=== PATIENT | female | born 1940 | race Caucasian/White ===

== ENCOUNTER 2017-01-07 18:05 | Inpatient (IN) | payer BC ==
--- NOTE | ~2017-01-07 | DS ---
Discharge Summary [facility] [address] [place]. [address] NAME: ZACK MALIK : 40 STATUS : ADM IN [facility]#: [id number] AGE: 76 ADM/REG DATE : 01/07/17 MR#: [id number] REPORT SERV DATE: 01/09/17 DICTATED BY: GABRIELA FUENTES DATE: 01/09/17 REPORT STATUS : Draft TRANSCRIBED BY: MODL DATE: 01/09/17 ADMISSION DATE: 01/07/2017 DISCHARGE DATE: 01/09/2017 DIAGNOSES ON ADMISSION: 1. Acute diverticulitis, recurrent in nature. 2. Leukocytosis. 3. Mild renal insufficiency. 4. Mild urinary tract infection. DIAGNOSES ON DISCHARGE: 1. Acute diverticulitis, improved. 2. Leukocytosis, improved. 3. Mild urinary tract infection, treated. 4. Abnormal CT scan and thickened urinary bladder on the CT, needs to have outpatient cystoscopy per Urology. 5. Mild acute kidney injury secondary to dehydration, resolved. 6. Hypertension, controlled. CONSULTANTS ON THE CASE: Broadcast Operations Engineer, Dr. Schwartz and also urologist, Dr. Hess. HISTORY OF PRESENT ILLNESS: Briefly, this is a 76-year-old female who was admitted by my colleague, Dr. Phillips on 01/07/2017 with lower abdominal pain consistent with acute recurrent diverticulitis as well as had mild urinary infection with dysuria. The patient reported that she had multiple episodes of diverticulitis and urinary tract infections. She was wondering why she has this repeated episode. She had elevated white count on admission. The white count on admission was 32,000 and she had mild dehydration with mild prerenal azotemia. The patient was started on IV fluids as well as on IV antibiotics, Levaquin, and Flagyl. For the details, see complete history of present illness dictated by Dr. Phillips on 01/07/2017. HOSPITAL COURSE: Briefly, the patient improved, was seen by me next day. Antibiotics were continued as well as she was seen by maintenance electrician, Dr. Schwartz, who evaluated the patient CT scan, which was done on admission. The CT scan of the abdomen and pelvis without contrast done on 01/07/2017 revealed colonic diverticulosis with mild haziness in the fat adjacent to the proximal sigmoid colon, which may represent early colitis, diverticulitis. No evidence for abscess. No evidence for perforation. Also thickened appearance of the anterior dome of the bladder, which may be due to under distention or cystitis. Suggest correlation with urinalysis as this appears somewhat focal. Followup cystoscopy may be helpful to entirely exclude an underlying neoplastic process. Duodenal diverticulum, 15 mm right ovarian cyst. So, basically after evaluation of the CT scan Dr. Schwartz recommended to continue antibiotics orally and he recommended the patient to be discharged as well as Dr. Hess, urologist was consulted for focally thickened urinary bladder. There was a concern about possible cystitis or other problems, so the patient needs to have outpatient cystoscopy. Her urinary Discharge Summary [place] [id number] [facility] [place]. [address] NAME: ZACK MALIK : 40 STATUS : ADM IN [facility]#: [id number] AGE: 76 ADM/REG DATE : 01/07/17 MR#: [id number] REPORT SERV DATE: 01/09/17 DICTATED BY: GABRIELA FUENTES DATE: 01/09/17 REPORT STATUS : Draft TRANSCRIBED BY: APOLINAR DATE: 01/09/17 tract infection was mild, but she was having some dysuria, Pyridium was given to the patient. Urinary culture was requested as well. The patient improved significantly and her white count improved, was 14,000 today. She was afebrile and doing much better. The patient was offered to stay one more day, but she refused to stay her and her daughter they both wanted to go home today. So, we gave her next dose of IV antibiotics today since she is afebrile and her pain has resolved. We will discharge her today per recommendation of Gastroenterology and Neurology as well as the patient to follow up with the primary care physician, Dr. Swanson in a week and he needs to follow up with Dr. Schwarzt in three to four weeks and with Dr. Hess also in three to four weeks. Blood pressure improved, was controlled 148/71 and her creatinine also normalized, creatinine was 0.81 today. She was afebrile, doing well. DISCHARGE MEDICATIONS: Continue home amlodipine 2.5 a day, vitamin C 500 daily, aspirin 81 mg daily, calcium with vitamin D 600 p.o. at bedtime, Lexapro 20 mg a day, levothyroxine 88 mcg daily, multivitamins daily, Toprol-XL 100 mg a day, Protonix 40 mg a day, MiraLAX one packet p.o. daily, Accupril 40 mg a day, Crestor 40 mg a day, Flonase nasal spray one spray daily p.r.n., the patient was given prescription of Levaquin 750 mg daily for 10 more days, Flagyl 500 mg p.o. t.i.d. for 10 more days, Pyridium 100 mg p.o. b.i.d. for dysuria for three more days. I also discussed with the patient's daughter that they need to follow up with Gastroenterology and Urology for cystoscopy. I spent 45 minutes on discharge. The patient to follow up with Dr. Swanson in one week. The patient was discharged in stable condition. MG/MODL Gabriela Fuentes M.D. / [id number] CC: Gregor Desir Alex G Kymber Habenicht, M.D. Munford Yates III, M.D.
--- NOTE | ~2017-01-07 | CN ---
Consultation Report [facility] [address] [place]. [address] NAME: ZACK MALIK : 40 STATUS : ADM IN PAT#: [id number] AGE: 76 ADM/REG DATE : 01/07/17 MR#: [id number] REPORT SERV DATE: 01/09/17 DICTATED BY: BRIAN SCHWARTZ III DATE: 01/08/17 REPORT STATUS : Draft TRANSCRIBED BY: APOLINAR DATE: 01/08/17 CONSULTATION DATE OF CONSULTATION: HISTORY OF PRESENT ILLNESS: The patient is a 76-year-old, white female with a history of hypertension, hypothyroidism, and recurrent diverticulitis, who presents for management of her recurrent diverticulitis. The patient states that she has had many bouts over the years and her primary doctor gives her medication. However, this time, the pain was worse and she was getting more nauseated. In addition, she felt a lot of burning and a little bit of blood in her urine. [facility] in [place] and she had a white blood cell count of over 30,000. She was sent downtown. She had a CT scan that showed some thickening of the dome of her bladder as well as diverticulitis. However, no complications. PAST MEDICAL HISTORY: Breast cancer, hypothyroidism, hyperlipidemia, hypertension, recurrent diverticulitis. Her last colonoscopy with Dr. Mata was six to seven years ago. PAST SURGICAL HISTORY: Double mastectomy with implants, carpal tunnel, cataracts, thyroid removal, cholecystectomy. MEDICATIONS: Norvasc, aspirin, Ceftin that was started on the , Lexapro, Synthroid, multivitamin, Toprol, MiraLAX, Protonix, Accupril, Crestor. ALLERGIES: SULFA. PHYSICAL EXAMINATION: GENERAL: Well-developed, well-nourished, slightly forgetful white female. VITAL SIGNS: Stable. She is afebrile. HEENT: Atraumatic, normocephalic. Sclerae anicteric. Oropharynx is clean. CHEST: Clear to auscultation. CV: S1, S2. ABDOMEN: Soft, nontender, nondistended. Good bowel sounds. EXTREMITIES: No edema. LABORATORY DATA: Labs noted urinary tract infection. Creatinine 1.13. White count 22,800, hemoglobin 10.7. ASSESSMENT AND PLAN: As noted, the patient with recurrent diverticulitis. Very mild, although her white count was elevated. I suspect that this was in addition to either cystitis or urinary tract infection. The CT scan documents no complication. As such, we will do the followin. Follow up with Dr. Mata in six to eight weeks for colonoscopy. 2. Antibiotics. 3. High-fiber diet. Consultation Report [place] [address] [place]. [address] NAME: ZACK MALIK : 40 STATUS : ADM IN PAT#: [id number] AGE: 76 ADM/REG DATE : 01/07/17 MR#: [id number] REPORT SERV DATE: 01/09/17 DICTATED BY: BRIAN SCHWARTZ III DATE: 01/08/17 REPORT STATUS : Draft TRANSCRIBED BY: APOLINAR DATE: 01/08/17 4. We will need to see a urologist to follow up on this abnormality in her bladder. We will sign off. If you have any questions, please contact me. VALENTINA/APOLINAR Brian Schwartz III, M.D. / [id number] CC: Gregor Desir MD William Buchner, M.D.
--- NOTE | ~2017-01-07 | HP ---
History And Physical [place] [id number] [place]. [address] NAME: ZACK MALIK : 40 STATUS : ADM IN [facility]#: [id number] AGE: 76 ADM/REG DATE : 01/07/17 MR#: [id number] REPORT SERV DATE: 01/07/17 DICTATED BY: MAMTA BERRY DATE: 01/07/17 REPORT STATUS : Draft TRANSCRIBED BY: MODAbby DATE: 01/07/17 DATE OF ADMISSION: 01/07/2017 CHIEF COMPLAINT: Abdominal pain. HISTORY OF PRESENT ILLNESS: The patient is a 76-year-old female. She has a past medical history significant for hypertension, hyperlipidemia, and hypothyroidism. She also has a history of recurrent diverticulitis and urinary tract infection. She states she has had diverticulitis over many years and has many bouts of diverticulitis. Usually her PCP, Dr. Swanson in [place] calls her in some Cipro. She states this episode is worse than most. It has been going on for quite a few days but has gotten worse over the past several days. She has had emesis x1. She has had pain that is a little more intense than what she is accustomed to which is right-sided at this point. Subjective fever. She went to the [id number] in [place] and was referred to the emergency department when her white count was noted to be significantly elevated. She was over 30,000 here. She was also noted to have UTI. She states her bowels have been normal and states these bouts of diverticulitis are usually caused by dietary indiscretion. PAST MEDICAL HISTORY: As covered above. PAST SURGICAL HISTORY: Thyroid removal, cholecystectomy, and double mastectomy with subsequent implant implantation and removal after silicon leakage, ankle surgery, ear surgery of a ruptured eardrum, knee scope, carpal tunnel release x2, and cataract surgery. CURRENT MEDICATIONS: Medication list is pending. ALLERGIES: SULFA. FAMILY HISTORY: Mother had CVA. Father had cardiovascular disease. SOCIAL HISTORY: Nondrinker, nonsmoker. REVIEW OF SYSTEMS: HEENT: No complaints. CARDIOVASCULAR: No chest pain or palpitations. PULMONARY: No cough or shortness of breath. GI: As covered in HPI. : She is having some dysuria. NEUROMUSCULOSKELETAL: Positive for the abdominal pain. Otherwise 10-point review of systems is negative. PHYSICAL EXAMINATION: VITAL SIGNS: Blood pressure 114/67, pulse 61, respirations 18, temperature 97.6, and O2 sat 99%. GENERAL: She is awake, alert, oriented, in no acute distress. HEENT: Normocephalic, atraumatic. Sclerae nonicteric. NECK: Supple. History And Physical [address] [place]. [address] NAME: ZACK MALIK : 40 STATUS : ADM IN PAT#: [id number] AGE: 76 ADM/REG DATE : 01/07/17 MR#: [id number] REPORT SERV DATE: 01/07/17 DICTATED BY: MAMTA BERRY DATE: 01/07/17 REPORT STATUS : Draft TRANSCRIBED BY: APOLINAR DATE: 01/07/17 HEART: Regular rate and rhythm without murmurs, gallops, or rubs. LUNGS: Clear to auscultation without rhonchi, rales, or wheezes. ABDOMEN: She does have bowel sounds. She has some mild tenderness in the right mid quadrant to palpation. No rebound. No distention. EXTREMITIES: No clubbing or cyanosis today. NEUROLOGICAL: Exam is grossly intact. LABORATORY DATA: Sodium 136, potassium 4.1, chloride 101, CO2 of 26, BUN and creatinine are 20 and 1.26. Glucose is 79. LFTs within normal limits. Lipase 84. White count is 32,000, H and H are 11.7 and 35.5, platelets are 151, 68 segs, 8 bands, and UA was leukocyte nitrite positive, [address] showed proximal sigmoid colon diverticulitis. It was uncomplicated with no perforated abscess. There was some thickening in the dome of her bladder. Followup recommended. ASSESSMENT: Diverticulitis with leukocytosis and mild renal insufficiency. PLAN: The patient has been admitted. IV antibiotics, IV fluids, serial labs. Will need outpatient evaluation of the abnormality on her CT on the bladder. SWETAF/APOLINAR Mamta Berry M.D. / [id number] CC: SVETLANA SWANSON
--- NOTE | ~2017-01-07 | CN ---
Consultation Report [facility] [address] [place]. [address] NAME: ZACK MALIK : 40 STATUS : ADM IN PAT#: [id number] AGE: 76 ADM/REG DATE : 01/07/17 MR#: [id number] REPORT SERV DATE: 01/08/17 DICTATED BY: YNES HESS DATE: 01/08/17 REPORT STATUS : Draft TRANSCRIBED BY: APOLINAR DATE: 01/08/17 UROLOGY CONSULT DATE OF CONSULTATION: 01/08/2017 This consult is from Dr. Stephen regarding abnormal finding on CT scan and recurrent urinary tract infections. CHIEF COMPLAINT: "I have an infection again." HISTORY: This is a 76-year-old woman who presented to the emergency room with an elevated white blood cell count of 32.8 and findings consistent with diverticulitis. She does have a history of recurrent diverticulitis. She was also suffering from symptoms of urinary tract infection and was found to have infected urine as well. She has a history of lifelong recurrent urinary tract infections per the patient. Usually, she calls her primary care physician and simply receives antibiotics over the phone. She does not recall having any urine cultures sent. She was taking Ceftin prior to admission. Her current symptoms with infection are urgency with leakage, frequency, and dysuria. She states she had a bladder tack years ago at [place]. CT scan noncontrast done for her diverticulitis symptoms showed an under-distended bladder, but they did comment on some thickening of the anterior wall. They state this thickening may be due to under-distention or cystitis, but recommended a cystoscopy to fully evaluate. Since her urine is infected, we cannot scope her. Her urinalysis did not show any red blood cells, which is promising. Currently, she is afebrile and feeling better today. PAST MEDICAL HISTORY: Significant for diverticulosis with recurrent episodes of diverticulitis, hypertension, hypercholesterolemia, hypothyroidism, history of recurrent urinary tract infections, and gastroesophageal reflux disease. PAST SURGICAL HISTORY: Thyroid surgery, cholecystectomy, silicone breast implants, double mastectomy with implant removal due to silicone leakage and then placement of implants, ankle surgery, ear surgery, knee scope, carpal tunnel release x2, and cataract surgery. MEDICATIONS: On admission, Norvasc, vitamin C, 81 mg aspirin, calcium with D, Ceftin, Lexapro, Flonase, Synthroid, Toprol-XL, Theragran-M vitamin, Protonix, MiraLAX, Accupril, and Crestor. ALLERGIES: SULFA. SOCIAL HISTORY: She is not currently . She denies any tobacco or alcohol use. REVIEW OF SYSTEMS: Positive for dysuria and abdominal pain. PHYSICAL EXAMINATION: Consultation Report [address] [place]. [address] NAME: ZACK MALIK : 40 STATUS : ADM IN [facility]#: [id number] AGE: 76 ADM/REG DATE : 01/07/17 MR#: [id number] REPORT SERV DATE: 01/08/17 DICTATED BY: YNES HESS DATE: 01/08/17 REPORT STATUS : Draft TRANSCRIBED BY: APOLINAR DATE: 01/08/17 VITAL SIGNS: She is afebrile. Blood pressure 179/70, pulse is 64. She has had 1320 mL in and is voiding. GENERAL: She is in no acute distress. NEUROLOGIC: Alert and oriented x3. PSYCHIATRIC: Appropriate. HEENT: She is significantly hard of hearing. Eyes; sclerae anicteric. NECK: Supple. LUNGS: Equal inspiratory effort bilaterally. CARDIOVASCULAR: She shows no edema today. ABDOMEN: Soft. She has some mild tenderness in her lower abdomen. LABORATORY STUDIES: Her white blood cell count is decreased to 22.8 today from 32.8 on admission. Hemoglobin of 10.7, hematocrit of 32.2, platelets of 174. She has 1 band today. Electrolytes are within normal limits. Creatinine is down to 1.13 today and glucose is 93. CT scan as stated above regarding urologic findings. Kidneys revealed no kidney stones or hydroureteronephrosis. She does have a 15 mm right ovarian cyst. A duodenal diverticulum and colonic diverticulosis with mild haziness of the fat adjacent to the proximal sigmoid. IMPRESSION: 1. Recurrent urinary tract infections. 2. Current urinary tract infection. 3. Abnormal bladder finding on CT scan. PLAN: 1. Hopefully, the Levaquin she is on for her diverticulitis will cover the urinary tract infection as well. We will check her culture results next . We will choose a urinary prophylaxis based on her culture result. We will see her back in the office for an office cystoscopy after urinary tract has healed from this current infection in four to six weeks. I have explained all this to the patient and she is in agreement with the plan. 2. I have ordered Pyridium for her current bladder symptoms. 3. It is okay to discharge her from the Urology standpoint. 4. Orders are written. CARLY/APOLINAR Ynes Hess M.D. / [id number] CC: Annia Stephen M.D. Consultation Report [address] [address] NAME: ZACK MALIK : 40 STATUS : ADM IN [facility]#: [id number] AGE: 76 ADM/REG DATE : 01/07/17 MR#: [id number] REPORT SERV DATE: 01/08/17 DICTATED BY: YNES HESS DATE: 01/08/17 REPORT STATUS : Draft TRANSCRIBED BY: APOLINAR DATE: 01/08/17 SVETLANA RAYMUNDO
[2017-01-07 17:31] LABS: BASOPHILS 0.1 %; BASOPHILS ABSOLUTE 0.03 10/3/uL (0.0-0.16); EOSINOPHILS 0.1 %; EOSINOPHILS ABSOLUTE 0.02 10/3/uL (0.0-0.53); HEMATOCRIT 35.5 % (36.0-48.0); HEMOGLOBIN 11.7 g/dL (12.0-16.0); IMMATURE GRANULOCYTES 0.8 %; IMMATURE GRANULOCYTES ABSOLUTE 0.27 10/3/uL (0.0-0.11); LYMPHOCYTES 12.3 %; LYMPHOCYTES ABSOLUTE 4.03 10/3/uL (0.67-4.30); MEAN CORPUSCULAR HEMOGLOB 28.7 pg (26.0-34.0); MEAN PLATELET VOLUME 10.6 fL (9.2-13.0); MONOCYTES 27.4 %; MONOCYTES ABSOLUTE 8.96 10/3/uL (0.21-1.20); NEUTROPHILS 59.3 %; NEUTROPHILS ABSOLUTE 19.44 10/3/uL (2.02-8.40); PLATELET COUNT 188 10/3/uL (150-400); RED CELL COUNT 4.08 10/6/uL (4.0-5.6)
[2017-01-07 17:36] LABS: ER CBC TAT 0 Hrs 14 Mins; WHITE BLOOD CELLS 32.8 10/3/uL (4.5-10.5)
[2017-01-07 17:37] LABS: MANUAL DIFF NO %
[2017-01-07 17:54] LABS: ALBUMIN 3.5 G/DL (3.5-5.0); ALKALINE PHOSPHATASE 62 U/L (45-117); BUN (BLOOD UREA NITROGEN) 20 MG/DL (6-23); CALCIUM, SERUM 8.8 MG/DL (8.5-10.4); CHLORIDE, SERUM 101 MMOL/L (96-112); CO2 (CARBON DIOXIDE) 26 MMOL/L (24-34); CREATININE 1.26 MG/DL (0.55-1.02); DIRECT BILIRUBIN 0.2 MG/DL (0.0-0.4); GFR AFRICAN AMERICAN 48 ML/MIN (>=60); GFR NON AFRICAN AMERICAN 41 ML/MIN (>=60); GLOBULIN 3.5 G/DL (2.5-4.1); GLUCOSE, SERUM 79 MG/DL (60-99); INDIRECT BILIRUBIN(NOT ORDER) 0.7 MG/DL (0.1-0.9); POTASSIUM, SERUM 4.1 MMOL/L (3.5-5.3); SGOT(AST) 16 U/L (5-40); SGPT(ALT) 18 U/L (5-65); SODIUM, SERUM 136 MMOL/L (135-148); TOTAL BILIRUBIN 0.9 MG/DL (0-1.2)
[2017-01-07 17:55] LABS: BAND NEUTROPHILS 8 %; ER DIFF TAT 0 Hrs 33 Mins; LYMPHOCYTES 14 %; LYMPHOCYTES ABSOLUTE (CALC) 4.59 10/3/uL (0.67-4.30); MONOCYTES 20 %; MONOCYTES ABSOLUTE (CALC) 6.56 10/3/uL (0.21-1.20); NEUTROPHILS ABSOLUTE (CALC) 21.65 10/3/uL (2.02-8.40); PLATELET ESTIMATE ADQ (ADEQUATE); RBC MORPHOLOGY NORM (NORMAL); SEGMENTED NEUTROPHIL (0) 58 %; TOTAL NUCLEATED CELLS 100
[2017-01-07 18:20] LABS: ASCORBIC ACID (UR NOT ORDER) 40 (NEG); BILIRUBIN, URINE NEGATIVE (NEG); ER URINALYSIS TAT 0 Hrs 10 Mins; KETONE, URINE NEGATIVE (NEG); LEUKOCYTE ESTERASE(NOT OR TRACE (NEG); NITRITE (URINE) POS (NEG); WBC (NOT ORDERED) (RFLEX) 19 (0-5)
[2017-01-07] MEDS ORDERED: NORV25 PO (19:03)
[2017-01-07] MEDS ORDERED: PROTONIX PO (19:03)
[2017-01-07] MEDS ORDERED: SYN88 PO (19:03)
[2017-01-07] MEDS ORDERED: ACCUPRIL40 MG PO (19:03)
[2017-01-07] MEDS ORDERED: VITC500 PO (19:04)
[2017-01-07] MEDS ORDERED: LEXAPRO20 PO (19:04)
[2017-01-07] MEDS ORDERED: TOPXL100 PO (19:04)
[2017-01-07] MEDS ORDERED: THERGRANM PO (19:04)
[2017-01-07] MEDS ORDERED: CRESTOR40 MG PO (19:04)
[2017-01-07] MEDS ORDERED: CALTRA600D PO (19:05)
[2017-01-07] MEDS ORDERED: FLONASE NAS (19:05)
[2017-01-07] MEDS ORDERED: CEFT5 PO (19:05)
[2017-01-07] MEDS ORDERED: MIRALAX POWDER1 PKT PO (19:05)
[2017-01-07] MEDS ORDERED: HALF81 PO (19:05)
[2017-01-08 04:44] LABS: HEMATOCRIT 32.2 % (36.0-48.0); HEMOGLOBIN 10.7 g/dL (12.0-16.0); MEAN CORPUS HGB CONC 33.2 g/dL (32.0-36.0); MEAN CORPUSCULAR HEMOGLOB 28.8 pg (26.0-34.0); MEAN CORPUSCULAR VOLUME 86.6 fL (80-100); MEAN PLATELET VOLUME 10.5 fL (9.2-13.0); PLATELET COUNT 174 10/3/uL (150-400); RBC DISTRIBUTION WIDTH 14.8 % (12.0-16.0); RED CELL COUNT 3.72 10/6/uL (4.0-5.6); WHITE BLOOD CELLS 22.8 10/3/uL (4.5-10.5)
[2017-01-08 04:45] LABS: MANUAL DIFF YES %
[2017-01-08 04:48] LABS: BUN (BLOOD UREA NITROGEN) 21 MG/DL (6-23); CALCIUM, SERUM 8.3 MG/DL (8.5-10.4); CHLORIDE, SERUM 107 MMOL/L (96-112); CREATININE 1.13 MG/DL (0.55-1.02); GFR AFRICAN AMERICAN 55 ML/MIN (>=60); GFR NON AFRICAN AMERICAN 47 ML/MIN (>=60); GLUCOSE, SERUM 93 MG/DL (60-99); POTASSIUM, SERUM 3.8 MMOL/L (3.5-5.3); SODIUM, SERUM 140 MMOL/L (135-148)
[2017-01-08 04:51] LABS: CO2 (CARBON DIOXIDE) 21 MMOL/L (24-34)
[2017-01-08 05:27] LABS: ATYPICAL LYMPH FEW (3-5%) (0-5%); BAND NEUTROPHILS 1 %; IMMATURE GRANS ABSOLUTE (CALC) 0.46 10/3/uL (0.0-0.11); LYMPHOCYTES 18 %; METAMYELOCYTES 2 %; MONOCYTES 13 %; MONOCYTES ABSOLUTE (CALC) 2.96 10/3/uL (0.21-1.20); NEUTROPHILS ABSOLUTE (CALC) 15.28 10/3/uL (2.02-8.40); PLATELET ESTIMATE ADQ (ADEQUATE); RBC MORPHOLOGY NORM (NORMAL); SEGMENTED NEUTROPHIL (0) 66 %; TOTAL NUCLEATED CELLS 100
[2017-01-09 04:31] LABS: HEMATOCRIT 31.1 % (36.0-48.0); HEMOGLOBIN 10.3 g/dL (12.0-16.0); MEAN CORPUS HGB CONC 33.1 g/dL (32.0-36.0); MEAN CORPUSCULAR HEMOGLOB 28.6 pg (26.0-34.0); MEAN CORPUSCULAR VOLUME 86.4 fL (80-100); MEAN PLATELET VOLUME 10.2 fL (9.2-13.0); PLATELET COUNT 169 10/3/uL (150-400); RBC DISTRIBUTION WIDTH 14.7 % (12.0-16.0); WHITE BLOOD CELLS 14.8 10/3/uL (4.5-10.5)
[2017-01-09 04:41] LABS: MANUAL DIFF YES %
[2017-01-09 04:49] LABS: CHLORIDE, SERUM 113 MMOL/L (96-112); CO2 (CARBON DIOXIDE) 22 MMOL/L (24-34); CREATININE 0.81 MG/DL (0.55-1.02); GFR AFRICAN AMERICAN 82 ML/MIN (>=60); GFR NON AFRICAN AMERICAN 71 ML/MIN (>=60); GLUCOSE, SERUM 93 MG/DL (60-99); POTASSIUM, SERUM 3.9 MMOL/L (3.5-5.3); SODIUM, SERUM 145 MMOL/L (135-148)
[2017-01-09 04:50] LABS: BUN (BLOOD UREA NITROGEN) 13 MG/DL (6-23)
[2017-01-09 06:26] LABS: BAND NEUTROPHILS 5 %; LYMPHOCYTES 10 %; LYMPHOCYTES ABSOLUTE (CALC) 1.48 10/3/uL (0.67-4.30); MONOCYTES 7 %; MONOCYTES ABSOLUTE (CALC) 1.04 10/3/uL (0.21-1.20); NEUTROPHILS ABSOLUTE (CALC) 12.28 10/3/uL (2.02-8.40); SEGMENTED NEUTROPHIL (0) 78 %; TOTAL NUCLEATED CELLS 100
[2017-01-09] MEDS ORDERED: FLAG500TAB PO (11:51)
[2017-01-09] MEDS ORDERED: LEVAQUIN750 MG PO (11:51)
[2017-01-09] MEDS ORDERED: PYR100B PO (11:52)
[2017-01-09 13:11] LABS: ASCORBIC ACID (UR NOT ORDER) 40 (NEG); BILIRUBIN, URINE NEGATIVE (NEG); KETONE, URINE NEGATIVE (NEG); LEUKOCYTE ESTERASE(NOT OR TRACE (NEG); WBC (NOT ORDERED) (RFLEX) 9 (0-5)
== END 2017-01-09 15:00 | disposition home or self-care (01) | DRG 392 ==
LOC: ER 18:05 → 5SO 19:30
PROVIDERS: Emergency Medicine; Hospitalist; Internal Medicine
DX: K57.92 Diverticulitis of intestine, part unspecified, without perforation or abscess without bleeding (principal); N17.9 Acute kidney failure, unspecified; N39.0 Urinary tract infection, site not specified; E86.0 Dehydration; I10 Essential (primary) hypertension; E78.5 Hyperlipidemia, unspecified; E03.9 Hypothyroidism, unspecified; Z87.440 Personal history of urinary (tract) infections; Z88.2 Allergy status to sulfonamides; Z85.3 Personal history of malignant neoplasm of breast; Z79.82 Long term (current) use of aspirin; Z79.899 Other long term (current) drug therapy
CPT/HCPCS: 74176; 80048; 80053; 81001; 82248; 83605; 83690; 85025; 87040; 87077; 87086; 87186; 93005; 96374; 99285; A9270-GY; C9113; G0378; J1956; J2405